=== PATIENT | male | born 1975 ===

== ENCOUNTER 2018-12-13 06:20 | Day surgery (SDC) | payer OTHER ==
[~2018-12-13 06:20] MED LIST: ALTACE1.25 M1 PO
[2018-12-13] MEDS ORDERED: PERCOCET 5-3251 EACH PO (10:26)
[2018-12-13] MEDS ORDERED: RECTICARE30 GM TOP (10:27)
== END 2018-12-13 17:20 | disposition home or self-care (01) ==
LOC: CIR.AMB 06:20
DX: K62.82 Dysplasia of anus (principal); K64.1 Second degree hemorrhoids; K64.4 Residual hemorrhoidal skin tags; K64.8 Other hemorrhoids